=== PATIENT | male | born 1945 | race Caucasian/White ===

== ENCOUNTER 2020-05-08 11:22 | Outpatient (CLI) | payer MEDICARE | END 2020-05-08 11:23 | disposition home or self-care (01) | LOC: CSHRAD 11:22 | PROVIDERS: ATTEND Internal Medicine Cardiovascular Disease | DX: R06.02 Shortness of breath (principal); R06.00 Dyspnea, unspecified; Z95.1 Presence of aortocoronary bypass graft; Z95.810 Presence of automatic (implantable) cardiac defibrillator | CPT/HCPCS: 71046 ==

== ENCOUNTER 2022-12-22 12:15 | Outpatient (CLI) | payer MEDICARE | END 2022-12-22 12:16 | disposition home or self-care (01) | LOC: CSHRAD 12:15 | PROVIDERS: ATTEND Internal Medicine Cardiovascular Disease | DX: R06.02 Shortness of breath (principal) | CPT/HCPCS: 71046 ==

== ENCOUNTER 2023-03-27 11:36 | Emergency (ER) | payer MEDICARE ==
[2023-03-27] MEDS ORDERED: Morphine 4 MG/ML VIAL ONE (13:33)
[2023-03-27] MEDS ORDERED: Lidocaine 4% Patch TD SCH (14:00)
== END 2023-03-27 16:41 | disposition home or self-care (01) ==
LOC: CSHERS 11:36
DX: M79.605 Pain in left leg (principal); M25.552 Pain in left hip
CPT/HCPCS: 96372; J2270